=== PATIENT | female | born 1980 | race African-American/Black ===

== ENCOUNTER 2021-02-06 09:12 | Outpatient (CLI) | payer OTHER, SELFPAY ==
--- NOTE | 2021-02-06 11:30 | NEURO_ITS ---
Impression: # Complains of pain in left upper extremity. # Evolving left Carpal Tunnel Syndrome. # No ulnar neuropathy. # Normal needle/EMG exam. Nerve Conduction Studies Anti Sensory Summary Table Stim Site NR Peak (ms) P-T Amp (?V) Site1 Site2 Delta-P (ms) Dist (cm) Hudson (m/s) Left Median Anti Sensory (2-3nd Digit) Wrist 2.5 65.1 Wrist 2-3nd Digit 2.5 14.0 56 Wrist 2.7 82.2 Wrist 2-3nd Digit 2.5 14.0 56 Left Radial Anti Sensory (Base 1st Digit) Wrist 1.8 47.7 Wrist Base 1st Digit 1.8 0.0 Left Ulnar Anti Sensory (5th Digit) Wrist 2.3 86.4 Wrist 5th Digit 2.3 14.0 61 Motor Summary Table Stim Site NR Onset (ms) O-P Amp (mV) Site1 Site2 Delta-0 (ms) Dist (cm) Hudson (m/s) Left Median Motor (Abd Poll Brev) Wrist 3.4 5.8 Elbow Wrist 4.9 31.0 63 Elbow 8.3 5.0 Left Ulnar Motor (Abd Dig Minimi) Wrist 2.3 5.7 A Elbow Wrist 5.0 30.0 60 A Elbow 7.3 5.0 F Wave Studies NR F-Lat (ms) L-R F-Lat (ms) Left Median (Mrkrs) (Abd Poll Brev) 25.96 Left Ulnar (Mrkrs) (Abd Dig Min) 25.74 EMG Side Muscle Nerve Root Ins Act Fibs Amp Dur Recrt Comment Left 1stDorInt Ulnar C8-T1 Nml Nml Nml Nml Nml Left Ext Indicis Radial (Post Int) C7-8 Nml Nml Nml Nml Nml Left Ext Digitorum Radial (Post Int) C7-8 Nml Nml Nml Nml Nml Left BrachioRad Radial C5-6 Nml Nml Nml Nml Nml Left PronatorTeres Median C6-7 Nml Nml Nml Nml Nml Left Abd Poll Brev Median C8-T1 Nml Nml Nml Nml Nml MTDD
== END 2021-02-06 09:13 | disposition home or self-care (01) ==
LOC: ANHNEURO 09:15
PROVIDERS: PCP Emergency Medicine; Visit Provider Emergency Medicine
DX: G62.9 Polyneuropathy, unspecified (principal); G56.02 Carpal tunnel syndrome, left upper limb
CPT/HCPCS: 95886; 95909

== ENCOUNTER 2021-04-08 11:12 | Outpatient (CLI) | payer OTHER, SELFPAY ==
--- NOTE | ~2021-04-08 | US_ITS ---
EXAMINATION: US soft tissue UE LT DATE: 04/08/2021 11:43 INDICATION: Localized swelling, mass and lump at the dorsal aspect of the left wrist TECHNIQUE: Multiple grayscale and Doppler ultrasound images of the of concern at the dorsal left wris t were obtained. COMPARISON: None FINDINGS: Normal appearance to the subcutaneous fat and underlying muscles and tendons at the region of concern . No lipoma or other abnormal masses, tenosynovitis, ganglion cysts or other abnormal fluid collectio ns identified at the region of concern. IMPRESSION: 1. No correlate identified for reported focal swelling at the dorsal aspect of the wrist. Reviewed, dictated and finalized at location A.
== END 2021-04-08 11:13 | disposition home or self-care (01) ==
LOC: ANHIMG 11:17
PROVIDERS: PCP Emergency Medicine; Visit Provider Nurse Practitioner Family
DX: R22.32 Localized swelling, mass and lump, left upper limb (principal)
CPT/HCPCS: 76882

== ENCOUNTER → 2021-05-29 08:24 | Outpatient (CLI) | payer OTHER, SELFPAY ==
[2021-05-29 19:52] LABS: SARS-CoV-2 RNA PCR Negative
== END ==
PROVIDERS: PCP Emergency Medicine; Visit Provider Emergency Medicine
DX: Z20.822 Contact with and (suspected) exposure to COVID-19 (principal)
CPT/HCPCS: C9803; U0003; U0005

== ENCOUNTER → 2021-09-09 08:28 | Outpatient (CLI) | payer OTHER, SELFPAY ==
[2021-09-10 13:33] LABS: SARS-CoV-2 RNA PCR Negative
== END ==
PROVIDERS: PCP Emergency Medicine; Visit Provider Emergency Medicine
DX: B34.9 Viral infection, unspecified (principal)
CPT/HCPCS: C9803; U0003; U0005

== ENCOUNTER 2022-02-15 10:30 | Emergency (ER) | payer OTHER, SELFPAY ==
[2022-02-15 10:42] VITALS: BP 144/84; PULSE 80; RESP 16; TEMP 36.6; O2SAT 99
--- NOTE | 2022-02-15 11:18 | ED.HEATRA ---
HPI - Head Injury General Chief complaint: Head Injury Stated complaint: head injury Time Seen by Provider: 02/15/22 11:18 Source: patient Mode of arrival: ambulatory Limitations: no limitations History of Present Illness HPI Narrative: 41-year-old female presents with injury to her head. Reports that she was getting things out of her trunk for work and the trunk came down and hit her in the forehead. Reports that she has pain to area where she was hit with trunk and is concerned that she may need sutures. She is ambulatory with steady gait. Denies dizziness and headache. States that after all of that she just did not feel like she wanted to go to work today . No nausea vomiting. No vision changes. All systems reviewed and negative except as noted above. Related Data Home Medications Medication Instructions Recorded Confirmed Lactobacills gasseri-Bifidobac cap PO 09/07/19 11/27/21 bifidum,longum 1.5 billion cell capsule ([facility]oflex) cholecalciferol (vitamin D3) 250 10,000 unit PO DAILY 09/07/19 11/27/21 mcg (10,000 unit) capsule losartan 100 mg tablet (Cozaar) 100 mg PO DAILY 09/07/19 11/27/21 johrepvi-opy-aqrt-FA-Ca carb-vit K 1 tablet PO DAILY 09/07/19 11/27/21 18 mg iron-400 mcg-500 mg tablet (One-A-Day Womens Formula) acyclovir 400 mg tablet tablet 02/15/22 norethindrone 1 mg-ethinyl tablet 02/15/22 estradiol 20 mcg (21)-iron 75 mg (7) tablet (Wiley Fe 10/02 ()) rosuvastatin 20 mg tablet tablet 02/15/22 Allergies Allergy/AdvReac Type Severity Reaction Status Date / Time No Known Allergies Allergy Unknown Verified 11/27/21 10:28 Review of Systems Review of Systems: CONSTITUTIONAL: Denies fever, chills, or sweats. EYES: Denies visual changes, redness, or discharge. ENT: Denies rhinorrhea, congestion, sore throat, or otalgia. CARDIOVASCULAR: Denies chest pain, palpitations, or edema. RESPIRATORY: Denies cough or dyspnea. GASTROINTESTINAL: Denies abdominal pain, nausea, vomiting, or diarrhea. GENITOURINARY: Denies dysuria or hematuria. SKIN: Denies rash or itching. Abrasion to forehead. MUSCULOSKELETAL: Denies back pain, joint pain, or myalgia. NEUROLOGIC: Denies headache, numbness, or weakness. PSYCHIATRIC: Denies anxiety or depression. All other systems reviewed are negative, except as documented in HPI. FOR[facility], LATER [facility] Past Medical History Medical History Anxiety Carpal tunnel syndrome, left Chondromalacia, patella Dyslipidemia Essential hypertension Knee joint effusion Left knee DJD Left knee pain Mass of left wrist Palpitations with regular cardiac rhythm Family History Family History Mother Patient's mother is in good health Family history of lupus erythematosus Sibling Patient's sister is in good health Other Hypertension Social History Social History Alcohol intake: current Comments At time of signature, agree with nursing past medical, surgical, social and family history. There is no relevant family history pertinent to the presenting complaint. Exam Narrative: GENERAL: This is a well-nourished, well-developed patient, in no apparent distress. HEAD: normocephalic, atraumatic. EYES: PERRL. Sclera clear/white. Vision is grossly intact. Extraocular motions intact. EARS: External ears normal NOSE: External nose normal NECK: Neck supple, non-tender without lymphadenopathy, masses or thyromegaly. CARDIOVASCULAR: Regular rate and rhythm without murmurs, gallops, or rubs. RESPIRATORY: Clear to auscultation. Breath sounds equal bilaterally. No wheezes, rales, or rhonchi. SKIN: warm, Dry, with no suspicious lesions or rash, good texture and turgor. Abrasion to center of forehead with scant bleeding. Does not require wound repair. NEURO: awake, alert, and oriented to person, place and time. There were no obv
== END 2022-02-15 11:26 | disposition home or self-care (01) ==
PROVIDERS: Emergency Provider Nurse Practitioner Family
DX: S00.81XA Abrasion of other part of head, initial encounter (principal); W22.8XXA Striking against or struck by other objects, initial encounter; E78.5 Hyperlipidemia, unspecified; I10 Essential (primary) hypertension; M17.12 Unilateral primary osteoarthritis, left knee
CPT/HCPCS: 99212; G0463

== ENCOUNTER 2022-09-14 16:59 | Emergency (ER) | payer OTHER, SELFPAY ==
[2022-09-14 17:05] VITALS: BP 144/91; PULSE 108; RESP 20; TEMP 36.6; O2SAT 100
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
== END 2022-09-14 17:51 | disposition left against medical advice (07) ==
DX: Z53.21 Procedure and treatment not carried out due to patient leaving prior to being seen by health care provider (principal)
CPT/HCPCS: 99199

== ENCOUNTER 2023-02-25 20:49 | Emergency (ER) | payer OTHER, SELFPAY ==
--- NOTE | ~2023-02-25 | XR_ITS ---
EXAMINATION: XR chest 2V DATE: 02/26/2023 01:21 INDICATION: Chest pain TECHNIQUE: PA and lateral views of the chest are obtained. COMPARISON: 11/02/2018 FINDINGS: The lungs are free of acute opacities. No pleural effusion or pneumothorax. The cardiomedia stinal silhouette is normal. There is moderate thoracic spondylosis. There is a moderate size sliding hiatal hernia. IMPRESSION: 1. No acute cardiopulmonary abnormality. Reviewed, dictated and finalized at location A.
[2023-02-25 21:06] VITALS: BP 143/90; PULSE 122; RESP 18; TEMP 37.2; O2SAT 100
--- NOTE | 2023-02-25 21:10 | ECG_ITS ---
Measurements Intervals [place] Rate: 114 P: 15 [place]: 153 QRS: -2 QRSD: 71 T: 30 QT: 320 QTc: 441 Interpretive Statements SINUS TACHYCARDIA ABNORMAL RHYTHM ECG NO PREVIOUS ECG AVAILABLE FOR COMPARISON Electronically Signed On 02-26-2023 13:21:32 CDT by Gustavo Guzmán M.D.
[2023-02-25 23:41] VITALS: BP 131/79; PULSE 105; RESP 18; O2SAT 99
[2023-02-26 00:38] VITALS: BP 143/90; PULSE 118; RESP 20; O2SAT 100
--- NOTE | 2023-02-26 00:50 | ED.GENADULT ---
HPI - General Adult General Chief complaint: Unspecified Stated complaint: spider bite Time Seen by Provider: 02/26/23 00:49 History of Present Illness HPI narrative: Patient is a 42-year-old female here for evaluation of a erythematous lesion to the right upper arm x1 day. Patient believes she was bit by a bug. Reports a stinging type of pain and she feels a firm nodule in the center of the rash. She started some topical steroid cream without relief. Patient states she started having some stinging in her anterior chest earlier today which prompted her ED evaluation. This is since resolved without intervention. No swelling to the arm, history of blood clots, shortness of breath, fevers or chills. Related Data Home Medications Medication Instructions Recorded Confirmed Lactobacills gasseri-Bifidobac cap PO 09/07/19 11/27/21 bifidum,longum 1.5 billion cell capsule ([facility]) cholecalciferol (vitamin D3) 250 10,000 unit PO DAILY 09/07/19 11/27/21 mcg (10,000 unit) capsule losartan 100 mg tablet (Cozaar) 100 mg PO DAILY 09/07/19 11/27/21 msxtlsic-jnl-tjbg-FA-Ca carb-vit K 1 tablet PO DAILY 09/07/19 11/27/21 18 mg iron-400 mcg-500 mg tablet (One-A-Day Womens Formula) acyclovir 400 mg tablet tablet 02/15/22 norethindrone 1 mg-ethinyl tablet 02/15/22 estradiol 20 mcg (21)-iron 75 mg (7) tablet (Wiley Fe 10/02 ()) rosuvastatin 20 mg tablet tablet 02/15/22 Allergies Allergy/AdvReac Type Severity Reaction Status Date / Time No Known Allergies Allergy Unknown Verified 11/27/21 10:28 Review of Systems Review of Systems: Gen: Denies fevers or chills Eyes: Denies eye pain or visual change ENT: Denies congestion Respiratory: Denies shortness of breath or cough CV: Denies chest pain or palpitations GI: Denies abdominal pain nausea, emesis or diarrhea denies burning, urgency, frequency or hematuria Musculoskeletal: Denies back pain or muscle pain Neuro: Denies numbness, tingling, weakness or focal weakness Skin: reports rash Except as documented, all other systems reviewed and negative PMFSH Past Medical History Medical History Anxiety Carpal tunnel syndrome, left Chondromalacia, patella Dyslipidemia Essential hypertension Knee joint effusion Left knee DJD Left knee pain Mass of left wrist Palpitations with regular cardiac rhythm Family History Family History Mother Patient's mother is in good health Family history of lupus erythematosus Sibling Patient's sister is in good health Other Hypertension Social History Social History Alcohol intake: current Exam Narrative: APPEARANCE: Well appearing, no pain in distress, well-nourished. Head: Normocephalic and atraumatic. EYES: PERRLA/EOMI, conjunctivae clear NOSE: No nasal drainage EARS: External ear normal in appearance THROAT: Oropharynx is clear. Mucous membranes are moist. NECK: Supple. No adenopathy, no masses. RESPIRATORY: Airway patent, respirations nonlabored. Clear to auscultation bilaterally, no rales, rhonchi, wheezing. CARDIOVASCULAR: Regular rate and rhythm without murmurs, rubs, or gallops. ABDOMINAL: Normoactive bowel sounds. Soft, nontender, nondistended. No rebound tenderness or guarding. MUSCULOSKELETAL: No swelling of the right upper extremity. Extremities are warm and well-perfused. Moves all extremities well. No edema. NEURO: Normal speech. No focal neurologic deficits. SKIN: there is a 7 cm area of erythema to the right upper arm with a pinpoint area of induration to the center, no fluctuance. This area is warm to touch and tender. There is no tenderness to palpation along the chest wall. PSYCHIATRIC: Normal affect/mood. Course Vital Signs Vital signs: Vital Signs Temperature 98.9 F 02/25/23 21:06 Pulse Rate 122
[2023-02-26] MEDS: predniSONE 20 MG TABLET 40 MG PO (01:06)
[2023-02-26] MEDS: diphenhydrAMINE HCl CAP 25 MG CAPSULE 50 MG PO (01:07)
[2023-02-26] MEDS: CEPHALEXIN 500 MG CAPSULE PO (01:07)
[2023-02-26 01:26] LABS: Basophils Percent Auto 0.2 % (0.2-1.2); Eosinophils Absolute Auto 0.2 K/mm3 (0-0.3); Hematocrit 38.8 % (37.0-47.0); Hemoglobin 12.9 g/dL (12.0-15.0); Immature Granulocyte Absolute 0.24 K/mm3 (0.00-0.031); Immature Granulocyte Percent A 2.2 % (0-0.5); Lymphocytes Absolute Auto 0.59 K/mm3 (0.9-3.2); Lymphocytes Percent Auto 5.4 % (18.3-44.2); Mean Corpuscular HGB Conc 33.2 g/dl (32-36); Mean Corpuscular Hemoglobin 32.5 pg (26-34); Mean Corpuscular Volume 97.7 fl (80-100); Mean Platelet Volume 10.5 fl (7.4-10.4); Monocytes Absolute Auto 0.3 K/mm3 (0.1-0.6); Neutrophils Absolute Auto 9.4 K/mm3 (1.3-6.7); Neutrophils Percent Auto 87.2 % (45.5-73.1); Platelet Count Result 177 k/mm3 (150-375); Red Blood Count 3.97 M/mm3 (4.2-5.4); Red Cell Distribution Width 12.7 % (11.5-14.5); White Blood Count 10.8 K/mm3 (4.5-10.0)
[2023-02-26 01:30] LABS: Alanine Aminotransferase 22 U/L (6-35); Alkaline Phosphatase 89 U/L (38-126); Anion Gap 9 mmol/L (8-16); Aspartate Amino Transferase 28 U/L (14-36); Bilirubin,Total 1.1 mg/dL (0.2-1.3); Blood Urea Nitrogen 13 mg/dL (7-17); Calcium 8.4 mg/dL (8.4-10.2); Carbon Dioxide 26 mmol/L (22-30); Chloride 102 mmol/L (98-107); Estimated CRCL calculation 99 ml/min; Estimated Glomerular Filt Rate > 60; Glucose 116 mg/dL (65-110); Lipase 65 U/L (23-300); Potassium 3.5 mmol/L (3.4-5.0); Sodium 137 mmol/L (137-145)
[2023-02-26 01:42] LABS: Troponin I < 0.012 ng/mL (0.000-0.034)
== END 2023-02-26 02:25 | disposition home or self-care (01) ==
PROVIDERS: Emergency Provider Physician Assistant; PCP Emergency Medicine
DX: L03.113 Cellulitis of right upper limb (principal); E78.5 Hyperlipidemia, unspecified; M17.12 Unilateral primary osteoarthritis, left knee; R00.0 Tachycardia, unspecified
CPT/HCPCS: 36415; 71046; 80053; 83690; 84484; 85025; 93005; 99284; A9270; J7512

== ENCOUNTER 2023-03-01 13:15 | Observation (INO) | payer OTHER, SELFPAY ==
[2023-03-01 13:23] VITALS: BP 154/104; PULSE 112; RESP 18; TEMP 36.4; O2SAT 100
[2023-03-01] MEDS: SODIUM CHLORIDE 0.9% IV 1,000 ML 999 ML IV CONT (15:03)
[2023-03-01] MEDS: MORPHINE SULFATE (*CRX) 4 MG/ML INJ IV PUSH ×2 (15:04→18:53)
[2023-03-01 15:06] LABS: Basophils Percent Auto 0.3 % (0.2-1.2); Eosinophils Absolute Auto 0.5 K/mm3 (0-0.3); Eosinophils Percent Auto 3.8 % (0-4.4); Hematocrit 44.2 % (37.0-47.0); Hemoglobin 14.8 g/dL (12.0-15.0); Immature Granulocyte Absolute 0.13 K/mm3 (0.00-0.031); Immature Granulocyte Percent A 1.1 % (0-0.5); Lymphocytes Percent Auto 18.6 % (18.3-44.2); Mean Corpuscular HGB Conc 33.5 g/dl (32-36); Mean Corpuscular Hemoglobin 32.7 pg (26-34); Mean Corpuscular Volume 97.6 fl (80-100); Mean Platelet Volume 10.3 fl (7.4-10.4); Monocytes Absolute Auto 0.8 K/mm3 (0.1-0.6); Monocytes Percent Auto 6.4 % (2.6-8.5); Neutrophils Absolute Auto 8.3 K/mm3 (1.3-6.7); Neutrophils Percent Auto 69.8 % (45.5-73.1); Platelet Count Result 229 k/mm3 (150-375); Red Blood Count 4.53 M/mm3 (4.2-5.4); Red Cell Distribution Width 12.7 % (11.5-14.5); White Blood Count 11.8 K/mm3 (4.5-10.0)
[2023-03-01 15:21] LABS: Alanine Aminotransferase 29 U/L (6-35); Albumin Level 4.6 g/dL (3.5-5.1); Alkaline Phosphatase 106 U/L (38-126); Anion Gap 4 mmol/L (8-16); Aspartate Amino Transferase 31 U/L (14-36); Bilirubin,Total 0.5 mg/dL (0.2-1.3); Blood Urea Nitrogen 12 mg/dL (7-17); Calcium 9.3 mg/dL (8.4-10.2); Carbon Dioxide 33 mmol/L (22-30); Chloride 100 mmol/L (98-107); Estimated CRCL calculation 112 ml/min; Estimated Glomerular Filt Rate > 60; Glucose 86 mg/dL (65-110); Lactic Acid Reflex 1.4 mmol/L (0.7-2.0); Sodium 137 mmol/L (137-145)
--- NOTE | 2023-03-01 15:52 | ED.SKABFB ---
HPI - Skin/Abscess/Foreign Bdy General Chief complaint: Skin/Abscess/Foreign Body Stated complaint: abcess Time Seen by Provider: 03/01/23 14:38 History of Present Illness HPI narrative: Patient is a 42-year-old female who presents ER with infection to her right upper extremity. She thinks she was bit by a spider last week. Was seen in the ER and started on Keflex. She has been taking it as prescribed. Redness is extended out across her upper arm as well as her forearm. There is throbbing nature to it. She had a blister that drained today but no thick pus. Reports subjective fevers and chills. Normal range of motion at the elbow without effusion. Related Data Allergies Allergy/AdvReac Type Severity Reaction Status Date / Time No Known Allergies Allergy Unknown Verified 03/01/23 15:02 Review of Systems Review of Systems: All systems reviewed & are unremarkable except as noted in HPI and below Constitutional: Constitutional: Reports chills, Denies fatigue and Reports fever(s) ENT: Denies nasal congestion and Denies sore throat Musculoskeletal: Musculoskeletal: Reports myalgias, Denies arthralgias and Denies joint swelling Integumentary/Breasts: Skin/Breast: Denies pruritus, Reports erythema, Denies rash and Reports skin ulcer Neurologic: Denies focal weakness and Denies numbness PMFSH Past Medical History Medical History Anxiety Carpal tunnel syndrome, left Chondromalacia, patella Dyslipidemia Essential hypertension Knee joint effusion Left knee DJD Left knee pain Mass of left wrist Palpitations with regular cardiac rhythm Family History Family History Mother Patient's mother is in good health Family history of lupus erythematosus Sibling Patient's sister is in good health Other Hypertension Social History Social History Smoking status: Never smoker Alcohol intake: never Substance use: never Lack of Transportation: No Lack of Food: Never True Current Housing: Decline to Answer Concerned About Future Housing: No Difficulty Paying Gas/Electric Bills: No Difficulty Paying for Meds: No Currently Unemployed: No Education: High School Diploma/GED Difficulty w/ Childcare or Family Care: No Spiritual care concerns: No Exam Narrative: GENERAL: Well-appearing, well-nourished, and in no acute distress. HEAD: Normocephalic, atraumatic. ENT: Mucous membranes moist. CHEST: Clear to auscultation. No respiratory distress. HEART: Regular rate and rhythm. Normal peripheral pulses. EXTREMITIES: Normal range of motion. No edema. SKIN: Warm, dry. Cellulitis right upper extremity with central focus at the right elbow extending proximally over the triceps region and then across the forearm) of the. The moderate warmth. No induration. NEURO: Alert and oriented x3. PSYCH: Normal mood and affect. Course Course Emergency Course: Very significant spreading infection to the arm. Could potentially be related to a bite reaction but seems more likely bacterial. Admit to hospitalist service for IV antibiotics as patient has failed outpatient antibiotics. Vital Signs Vital signs: Vital Signs Temperature 97.6 F 03/01/23 13:23 Pulse Rate 112 H 03/01/23 13:23 Respiratory Rate 18 03/01/23 13:23 Blood Pressure 154/104 H 03/01/23 13:23 Pulse Oximetry 100 03/01/23 13:23 Oxygen Delivery Room Air 03/01/23 13:23 Temperature 98 F 03/01/23 18:07 Pulse Rate 102 H 03/01/23 18:07 Respiratory Rate 18 03/01/23 18:07 Blood Pressure 153/112 H 03/01/23 18:07 Pulse Oximetry 100 03/01/23 18:07 Oxygen Delivery Room Air 03/01/23 13:23 MDM - Skin/Abscess/Foreign Bdy Lab Data 03/01/23 14:58 03/01/23 14:58 Labs: Lab Results 03/01/23 Range/Units 14:58 WBC 11.8
[2023-03-01] MEDS: ceFAZolin 1 GM/NS 50 ML 1 GM/50 ML BAG IVPB (16:22)
[2023-03-01 17:51] VITALS: BP 150/93; PULSE 92; RESP 18; O2SAT 100
[2023-03-01 18:03] VITALS: BMI 41.3
[2023-03-01 18:07] VITALS: BP 153/112; PULSE 102; RESP 18; TEMP 36.6; O2SAT 100
--- NOTE | 2023-03-01 18:18 | ADMGEN ---
This patient, Yohana Chowdhury, was admitted to [facility] Surg Room 312-01. Patient/family oriented to hospital policies and general routines including ID bracelet, bed and alarms, visiting hours, pain management, procedures, bathroom and other care routines, personal items, smoking policy, room service/diet, and visiting hours. Information on how to activate the Rapid Response Team has been discussed. Patient/Family are encouraged to report perceived risks to care and to ask questions if they do not understand what they are told or what they should do.
--- NOTE | 2023-03-01 19:09 | PC.NURSE ---
Pt arrived to the unit by wheel chair. Pt A&O4 female that participated and contributed in plan of care. Pt denies any home meds. Pt reports pain 04/22. Pt treated with morphine. Pt admission done. Pt assessment negative for any significant findings. Pt monitored for any changes in status this shift.
--- NOTE | 2023-03-01 20:35 | PM.IMHP ---
H&P: HPI History of Present Illness Date/Time: 03/01/23 20:35 Chief Complaint: Infection to right upper Narrative: This is a 42-year-old female patient who came to the emergency room with infection to the right upper extremity. The patient works at the [employer] and had been getting things out of a box when she noticed something had stung her bit her. She believes that she has a spider bite that has been there for the last week. The patient was seen in the emergency room on 02/26 where she had been discharged to home with Keflex. The patient stated she has been taking that as prescribed. The patient noticed a hard nodule to her right elbow the redness has extended to her right forearm and right upper arm. The pain is throbbing. She had a blister that drain today but no thick pulse. The patient stated that was clear liquid fluid. She reports a subjective fever and chills. Patient has limited range of motion due to the edema and pain. Her white count 11.8. The patient was started on Ancef as per antibiotic stewardship. The patient was given IV fluids and morphine as well. The patient is being admitted on the date of service of 03/01/2023. Review of Systems Review of Systems: All systems reviewed & are unremarkable except as noted in HPI and below Constitutional: Constitutional: Reports as per HPI and Reports no additional constitutional complaints Eyes: Eyes: Reports as per HPI and Reports no additional eye complaints ENT: Reports system reviewed and no additional complaints, except as documented and Reports Normal hearing present Cardiovascular: Cardiovascular: Reports no additional cardiovascular complaints Respiratory: Respiratory: Reports no additional respiratory complaints and Reports no additional respiratory complaints Gastrointestinal: Gastrointestinal: Reports as per HPI and Reports no additional gastrointestinal complaints Musculoskeletal: Musculoskeletal: Reports no additional musculoskeletal complaints Integumentary/Breasts: Skin/Breast: Reports system reviewed and no additional complaints, except as docu and Reports as per HPI Neurologic: Reports system reviewed and no additional complaints, except as documented, Reports as per HPI and Reports Normal hearing present Psychiatric: Psychiatric: Reports no additional psychiatric complaints and Reports as per HPI Endocrine: Endocrine: Reports no additional endocrine complaints Hematologic/Lymphatic: Hematologic/Lymphatic: Reports no additional hematologic/lymphatic complaints Allergic/Immunologic: Allergic/Immunologic: Reports no additional allergic/immunologic complaints PMFSH Past Medical History Medical History (Updated 03/02/23 @ 00:06 by Ruby Quevedo NP) Anxiety Carpal tunnel syndrome, left Chondromalacia, patella Dyslipidemia Essential hypertension Knee joint effusion Left knee DJD Left knee pain Palpitations with regular cardiac rhythm Surgical History Surgical History (Updated 03/02/23 @ 00:02 by Ruby Quevedo NP) No pertinent past surgical history Family History Family History Mother Patient's mother is in good health Family history of lupus erythematosus Sibling Patient's sister is in good health Other Hypertension Social History Social History (Updated 03/02/23 @ 00:04 by Ruby Quevedo NP) Social History: The patient is single and lives with 3 of her 4 children. The patient works for the [employer]. She is lifelong nonsmoker. She denies any alcohol marijuana or illicit drugs. Code status full code Smoking status: Never smoker Alcohol intake: never Substance use: never Lack of Transportation: No Lack of Food: Never True Current Housing: Decline to Answer Concerned About Future Housing: No Difficulty Paying Gas/Electric Bills: No Difficulty Paying for Meds: No Currently Unemployed: No Education: High School Diplom
[2023-03-01] MEDS: HYDROcodone/acetaminophen (*CRX) 5-325 MG TABLET 1 TAB PO (21:59)
[2023-03-01 22:00] VITALS: BP 129/79; PULSE 94; RESP 18; TEMP 36.8; O2SAT 94
[2023-03-02] MEDS: ceFAZolin 1 GM/NS 50 ML 1 GM/50 ML BAG IVPB ×4 (00:18→23:55)
[2023-03-02] MEDS: MORPHINE SULFATE (*CRX) 4 MG/ML INJ IV PUSH (05:40)
[2023-03-02 06:00] VITALS: BP 100/56; PULSE 89; RESP 18; TEMP 35.9; O2SAT 99
[2023-03-02 06:19] LABS: Basophils Absolute Auto 0.1 K/mm3 (0.0-0.1); Basophils Percent Auto 0.6 % (0.2-1.2); Eosinophils Absolute Auto 0.4 K/mm3 (0-0.3); Eosinophils Percent Auto 3.2 % (0-4.4); Hematocrit 42.3 % (37.0-47.0); Hemoglobin 13.7 g/dL (12.0-15.0); Immature Granulocyte Absolute 0.13 K/mm3 (0.00-0.031); Immature Granulocyte Percent A 1.1 % (0-0.5); Lymphocytes Absolute Auto 1.77 K/mm3 (0.9-3.2); Lymphocytes Percent Auto 14.3 % (18.3-44.2); Mean Corpuscular HGB Conc 32.4 g/dl (32-36); Mean Corpuscular Hemoglobin 31.9 pg (26-34); Mean Corpuscular Volume 98.4 fl (80-100); Mean Platelet Volume 10.2 fl (7.4-10.4); Monocytes Absolute Auto 0.7 K/mm3 (0.1-0.6); Monocytes Percent Auto 5.9 % (2.6-8.5); Neutrophils Absolute Auto 9.3 K/mm3 (1.3-6.7); Neutrophils Percent Auto 74.9 % (45.5-73.1); Platelet Count Result 239 k/mm3 (150-375); Red Cell Distribution Width 12.9 % (11.5-14.5); White Blood Count 12.4 K/mm3 (4.5-10.0)
[2023-03-02 06:32] LABS: Lactic Acid Reflex 1.1 mmol/L (0.7-2.0)
[2023-03-02 06:35] LABS: Alanine Aminotransferase 21 U/L (6-35); Albumin Level 3.9 g/dL (3.5-5.1); Alkaline Phosphatase 91 U/L (38-126); Anion Gap 7 mmol/L (8-16); Aspartate Amino Transferase 17 U/L (14-36); Bilirubin,Total 0.5 mg/dL (0.2-1.3); Blood Urea Nitrogen 8 mg/dL (7-17); Calcium 8.4 mg/dL (8.4-10.2); Carbon Dioxide 26 mmol/L (22-30); Chloride 101 mmol/L (98-107); Estimated CRCL calculation 114 ml/min; Estimated Glomerular Filt Rate > 60; Glucose 91 mg/dL (65-110); Magnesium 2.3 mg/dL (1.6-2.3); Potassium 4.1 mmol/L (3.4-5.0); Sodium 134 mmol/L (137-145)
[2023-03-02 09:59] VITALS: O2SAT 100
[2023-03-02 14:00] VITALS: BP 144/101; PULSE 118; RESP 18; TEMP 36.8; O2SAT 100
--- NOTE | 2023-03-02 15:26 | WPDPN ---
Progress Note: A&P Assessment and Plan (1) Cellulitis: Code(s): L03.90 - Cellulitis, unspecified Status: Acute Assessment and Plan: Patient's white count was only 11.8. However she has extensive redness to the right forearm as well as swelling and tenderness. The patient had been taking Keflex outpatient. The patient failed outpatient therapy. The patient was started on Ancef as per antibiotic stewardship. Blood cultures are pending. Her heart rate is 94 and her blood pressure is 129/79. Her BUN and creatinine are normal. The patient is afebrile. The patient does not appear to be septic at this time. The patient has [place] for lesser pain and morphine for pain 7-10. Check lactic level. 03/02/2023 interval history: 42-year-old female post to work presented with right arm erythema and swelling as cellulitis being treated with cefazolin states her redness and pain has improved, denies any fever or chills, denies any drainage, will follow-up on the blood culture and further recommendation to follow. (2) Essential hypertension: Code(s): I10 - Essential (primary) hypertension Status: Acute Assessment and Plan: The patient stated that she does have hypertension however no home medications are listed for blood pressure medications. I did order p.r.n. with parameters. Subjective Date/time seen: 03/02/23 15:26 Interval history: Infection to right upper HPI-Narrative: This is a 42-year-old female patient who came to the emergency room with infection to the right upper extremity.? 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 She believes that she has a spider bite that has been there for the last week.? The patient was seen in the emergency room on 02/26 where she had been discharged to home with Keflex.? The patient stated she has been taking that as prescribed.? The patient noticed a hard nodule to her right elbow the redness has extended to her right forearm and right upper arm.? The pain is throbbing.? She had a blister that drain today but no thick pulse.? The patient stated that was clear liquid fluid.? She reports a subjective fever and chills.? Patient has limited range of motion due to the edema and pain.? Her white count 11.8.? The patient was started on Ancef as per antibiotic stewardship.? The patient was given IV fluids and morphine as well. 03/02/2023 interval history: 42-year-old female post to work presented with right arm erythema and swelling as cellulitis being treated with cefazolin states her redness and pain has improved, denies any fever or chills, denies any drainage, will follow-up on the blood culture and further recommendation to follow. Review of Systems Review of Systems: All systems reviewed & are unremarkable except as noted in HPI and below Exam Narrative: Patient is comfortable, NAD HEENT: eyes are clear and none icteric LUNGS: Normal respiratory effort ABD: Distended Lower extremities: no edema SKIN: nonjaundiced, right upper arm erythematosus and swelling, no open sore or drainage Neuro: grossly intact. Objective Data Vital Signs Vital Signs: Vital Signs - 24 hr 03/01/23 17:51 03/01/23 18:07 03/01/23 22:00 Temperature 98 F 98.2 F Pulse Rate 92 102 H 94 Respiratory Rate 18 18 18 Blood Pressure 150/93 H 153/112 H 129/79 Pulse Oximetry 100 100 94 Oxygen Delivery 03/02/23 06:00 03/02/23 09:59 03/02/23 08:00 Temperature 96.6 F L Pulse Rate 89 Respiratory Rate 18 Blood Pressure 100/56 L Pulse Oximetry 99 100 Oxygen Delivery Room Air Room Air Intake/Output Intake/Output: Intake & Output 02/27/23 02/28/23 03/01/23 03/02/23 23:59 23:59 23:59 23:59 Intake Total 1050 1488 Output Total 900 Balance 1050 588 Meds/Results Medications: Active Medications Generic Name Dose Route Start Last Admin Trade Name Freq PRN Re
[2023-03-02] MEDS: HYDROcodone/acetaminophen (*CRX) 5-325 MG TABLET 1 TAB PO (18:31)
[2023-03-02 20:49] VITALS: BP 117/75; PULSE 96; RESP 16; TEMP 36.1; O2SAT 100
[2023-03-03] MEDS: HYDROcodone/acetaminophen (*CRX) 5-325 MG TABLET 1 TAB PO (03:26)
[2023-03-03 05:57] VITALS: BP 119/62; PULSE 74; RESP 16; TEMP 36.8; O2SAT 98
[2023-03-03 07:16] LABS: Hematocrit 42.1 % (37.0-47.0); Hemoglobin 13.8 g/dL (12.0-15.0); Mean Corpuscular HGB Conc 32.8 g/dl (32-36); Mean Corpuscular Hemoglobin 32.2 pg (26-34); Mean Corpuscular Volume 98.4 fl (80-100); Mean Platelet Volume 10.3 fl (7.4-10.4); Platelet Count Result 225 k/mm3 (150-375); Red Blood Count 4.28 M/mm3 (4.2-5.4); Red Cell Distribution Width 12.8 % (11.5-14.5); White Blood Count 10.4 K/mm3 (4.5-10.0)
[2023-03-03 07:25] LABS: Anion Gap 5 mmol/L (8-16); Blood Urea Nitrogen 10 mg/dL (7-17); Calcium 8.4 mg/dL (8.4-10.2); Carbon Dioxide 28 mmol/L (22-30); Chloride 102 mmol/L (98-107); Estimated CRCL calculation 114 ml/min; Estimated Glomerular Filt Rate > 60; Glucose 98 mg/dL (65-110); Potassium 4.1 mmol/L (3.4-5.0); Sodium 135 mmol/L (137-145)
[2023-03-03 08:00] VITALS: PULSE 74; RESP 16; O2SAT 98
--- NOTE | 2023-03-03 10:39 | PM.DS ---
DS: Admitting Diagnosis Discharge Date 03/03/2023 Admitting Diagnosis Infection to right upper DS: Discharge Diagnosis Discharge Diagnosis (1) Cellulitis: Code(s): L03.90 - Cellulitis, unspecified Status: Acute Assessment and Plan: Patient's white count was only 11.8. However she has extensive redness to the right forearm as well as swelling and tenderness. The patient had been taking Keflex outpatient. The patient failed outpatient therapy. The patient was started on Ancef as per antibiotic stewardship. Blood cultures are pending. Her heart rate is 94 and her blood pressure is 129/79. Her BUN and creatinine are normal. The patient is afebrile. The patient does not appear to be septic at this time. The patient has [place] for lesser pain and morphine for pain 7-10. Check lactic level. 03/02/2023 interval history: 42-year-old female post to work presented with right arm erythema and swelling as cellulitis being treated with cefazolin states her redness and pain has improved, denies any fever or chills, denies any drainage, will follow-up on the blood culture and further recommendation to follow. (2) Essential hypertension: Code(s): I10 - Essential (primary) hypertension Status: Acute Assessment and Plan: The patient stated that she does have hypertension however no home medications are listed for blood pressure medications. I did order p.r.n. with parameters. DS: Summary Hospital Course Reason for hospitalization: Infection to right upper Narrative: This is a 42-year-old female patient who came to the emergency room with infection to the right upper extremity.? 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 She believes that she has a spider bite that has been there for the last week.? The patient was seen in the emergency room on 02/26 where she had been discharged to home with Keflex.? The patient stated she has been taking that as prescribed.? The patient noticed a hard nodule to her right elbow the redness has extended to her right forearm and right upper arm.? The pain is throbbing.? She had a blister that drain today but no thick pulse.? The patient stated that was clear liquid fluid.? She reports a subjective fever and chills.? Patient has limited range of motion due to the edema and pain.? Her white count 11.8.? The patient was started on Ancef as per antibiotic stewardship.? The patient was given IV fluids and morphine as well. Hospital Course: ?42-year-old female post to work presented with right arm erythema and swelling as cellulitis being treated with cefazolin states her redness and pain has improved, denies any fever or chills, denies any drainage, will follow-up on the blood culture and further recommendation to follow. Today patient states redness and swelling has improved, denies any fever or chills, blood culture no growth so far, will discharge the patient on Keflex and doxycycline, patient to follow with her primary care provider Time Spent with Patient Time attestation: Total time spent providing and/or coordinating discharge services: Exam Narrative: Patient is comfortable, NAD HEENT: eyes are clear and none icteric LUNGS: Normal respiratory effort ABD: Distended Lower extremities: no edema SKIN: nonjaundiced, right upper arm erythematosus and swelling, no open sore or drainage Neuro: grossly intact. DS: Data Data Completed and Pending Labs on day of discharge: Labs from last 24 hours 03/03/23 07:05 WBC 10.4 H RBC 4.28 Hgb 13.8 Hct 42.1 MCV 98.4 MCH 32.2 MCHC 32.8 RDW 12.8 Plt Count 225 MPV 10.3 Sodium 135 L Potassium 4.1 Chloride 102 Carbon Dioxide 28 Anion Gap 5 L BUN 10 Creatinine 0.70 Estim Creat Clear Calc 114 Estimated GFR > 60 Glucose 98 Calcium 8.4 Preliminary micro results at discharge 03/02/23 00:37 Blood Cult
== END 2023-03-03 13:10 | disposition home or self-care (01) ==
LOC: ANHED 15:04 → ANH3MEDSUR 19:23
PROVIDERS: Nurse Practitioner; Admitting Provider Student in an Organized Health Care Education/Training Program; Emergency Provider Emergency Medicine; PCP Emergency Medicine; Visit Provider Family Medicine
DX: L03.113 Cellulitis of right upper limb (principal); F41.9 Anxiety disorder, unspecified; E78.5 Hyperlipidemia, unspecified; I10 Essential (primary) hypertension; Z82.49 Family history of ischemic heart disease and other diseases of the circulatory system
CPT/HCPCS: 36415; 80048; 80053; 83605; 83735; 85025; 85027; 87040; 96361; 96365; 96366; 96375; 96376; 99285; A9270; G0378; J0690; J2270; J7030